=== PATIENT | male | born 1950 | race Caucasian/White ===

== ENCOUNTER 2017-02-16 17:42 | Emergency (ER) | payer OTHER, MEDICAID ==
--- NOTE | 2017-02-16 18:21 | EDPHY ---
H & P Time Seen by Provider: 02/16/17 18:08 HPI/ROS: CHIEF COMPLAINT: Left forearm ecchymosis HISTORY OF PRESENT ILLNESS: 66-year-old male history of cardiac stenting on daily Plavix and aspirin arrives via private vehicle after he noticed ecchymosis to his left forearm this afternoon. No known trauma. He spent the morning playing with his granddaughter.. He went to an urgent care and they referred him to the ER for evaluation PRIMARY CARE PROVIDER: Dr. Amanda Beverly REVIEW OF SYSTEMS: A ten point review of systems was performed and is negative with the exception of the items mentioned in the HPI PHYSICAL EXAM (Prior to examination, patient consented to physical exam, hands were washed and my usual and customary physical exam procedures followed) 1) GENERAL: Well-developed, well-nourished, alert and oriented. Appears to be in no acute distress. 2) HEAD: Normocephalic 3) HEENT: sclera anicteric 4) LUNGS: Breathing comfortably. 5) SKIN: left volar forearm ecchymosis. Soft compartments. 6) MUSCULOSKELETAL: hand, wrist, forearm no underlying osseous discomfort. Full pain-free range of motion all joints of the left upper extremity. 7) NEUROLOGIC: Radial ulnar median nerve function intact. DIFFERENTIAL DIAGNOSIS: In no particular include but limited to compartment syndrome, traumatic ecchymosis, DVT Smoking Status: Never smoked Constitutional: Initial Vital Signs Temperature (C) 36.3 C 02/16/17 17:45 Heart Rate 101 H 02/16/17 17:45 Respiratory Rate 16 02/16/17 17:45 Blood Pressure 136/88 H 02/16/17 17:45 O2 Sat (%) 93 02/16/17 17:45 O2 Delivery Mode Room Air Allergies/Adverse Reactions: bacitracin Allergy (Verified 02/04/16 14:50) Home Medications: Medication Instructions Recorded Allopurinol [Allopurinol 300 MG 300 mg PO DAILY@02/15/12 (RX)] Aspirin [Aspirin 325 mg (*)] 325 mg PO DAILY@02/15/12 Multivitamins [Multivitamin (*)] 1 each PO DAILY 02/15/12 Amantadine HCl [Amantadine] 100 mg PO BID@06,09/29/13 Atorvastatin Calcium [Lipitor 40 40 mg PO DAILY@09/29/13 mg (*)] Carbidopa/Levodopa 25/100Mg 2 tab PO QID@,,,09/29/13 [Sinemet 25/100 MG (*)] Clopidogrel Bisulfate [Plavix (*)] 75 mg PO DAILY06 09/29/13 Fenofibrate [Tricor 145 mg (*)] 145 mg PO DAILY@09/29/13 Pregabalin [Lyrica 50mg (*)] 50 mg PO DAILY@09/29/13 Tamsulosin HCl [Flomax 0.4 MG (*)] 0.4 mg PO DAILY06 09/29/13 Entacapone [Comtan] 200 mg PO TID@,,02/04/16 Herbals/Supplements -Info Only 1 ea PO DAILY 02/04/16 Nitroglycerin [Nitrostat 0.4 mg 0.4 mg SL Q5M PRN 02/04/16 (*)] glipiZIDE [Glipizide] 5 mg PO BID@,02/04/16 metFORMIN HCL [Metformin HCl ER] 500 mg PO BID@,02/04/16 prednisoLONE ACET 1% [Pred Forte 1 drops EACHEYE BID 02/04/16 1% (*)] Carvedilol [Coreg (*)] 12.5 mg PO BIDMEAL 02/10/16 Sacubitril/Valsartan 24/26Mg 1 ea PO BID@,02/10/16 [Entresto 24 mg/26 mg (RX)] MDM/Departure - [facility] Imaging Results: Imaging Impressions Extremity Venous Study 02/16/17 18:18 Impression: No deep venous thrombosis left upper extremity. Results called to Crow Lafleur PA-C, at 7:15 PM. Imaging: Discussed imaging studies w/ optical worker Radiologist ED Course/Re-evaluation: Patient was re-evaluated with serial exams most recent 7:30 p.m.. Discussed his negative DVT study.he has soft compartments is neurovascular intact with brisk capillary refill and strong pulses. Doubt compartment syndrome. Doubt DVT. Doubt cellulitis. Suspect that the patient's ecchymosis is likely secondary to minor trauma earlier today in the presence of Plavix and aspirin use. I recommended elevation and usual customary orthopedic precautions instructions provided. Questions and concerns addressed by myself.Care and management in consultation with secondary supervising physician Dr Her . - Depart Disposition: Home, Routine, Self-Care Clinical Impression: Traumatic ecchymosis of left forearm Qualifiers: Encounter type: initial encounter Qualified Code(s): S50.12XA - Contusion of left forearm, initial encounter Instructions: Contusion in Adults (ED) Additional Instructions: Return to the ER immediately if you experience discoloration, have worsening pain, numbness, tingling, or any other symptoms that concern you. If you received x-rays in the emergency department today, be advised, that ligamentous , tendon, muscular, and other non-bony injury cannot be fully ruled out. Try to keep your affected extremity elevated above the level of your chest, and keep cold packs on the affected area, for the next 48 hours. Referrals: Amanda Beverly MD [Primary Care Provider] - 1-2 days without fail
[2017-02-16 19:55] VITALS: BP 110/72; PULSE 97; RESP 20; TEMP 97.9; O2SAT 91
== END 2017-02-16 19:55 | disposition home or self-care (01) ==
DX: S50.12XA Contusion of left forearm, initial encounter (principal); Z79.82 Long term (current) use of aspirin; Z95.5 Presence of coronary angioplasty implant and graft; X58.XXXA Exposure to other specified factors, initial encounter

== ENCOUNTER → 2017-08-22 | Outpatient (CLI) | payer OTHER, MEDICAID | LOC: CIMAGING 11:51 | PROVIDERS: ATTEND Family Medicine | DX: M19.011 Primary osteoarthritis, right shoulder (principal); Z95.0 Presence of cardiac pacemaker | CPT/HCPCS: 73030-PO ==

== ENCOUNTER → 2017-09-06 | Outpatient (CLI) | payer OTHER, MEDICAID | LOC: FIMAGING 08:14 | PROVIDERS: ATTEND Orthopaedic Surgery | DX: S46.011A Strain of muscle(s) and tendon(s) of the rotator cuff of right shoulder, initial encounter (principal); M75.91 Shoulder lesion, unspecified, right shoulder ==

== ENCOUNTER → 2018-02-14 | Outpatient (CLI) | payer OTHER, MEDICAID | LOC: FIMAGING 08:16 | DX: M51.26 Other intervertebral disc displacement, lumbar region (principal); M51.27 Other intervertebral disc displacement, lumbosacral region; M48.061 Spinal stenosis, lumbar region without neurogenic claudication; M48.07 Spinal stenosis, lumbosacral region ==

== ENCOUNTER 2018-10-26 13:43 | Inpatient (IN) | payer OTHER ==
--- NOTE | 2018-10-26 14:11 | CPEKG ---
Test Reason : OPEN Blood Pressure : / mmHG Vent. Rate : 083 BPM Atrial Rate : 041 BPM P-R Int : 166 ms QRS Dur : 124 ms QT Int : 373 ms P-R-T Axes : 025 076 -54 degrees QTc Int : 439 ms Sinus rhythm Ventricular bigeminy Nonspecific intraventricular conduction delay Anteroseptal infarct, old Confirmed by Isaías Huston ([id number]) on 10/26/2018 2:10:33 PM Referred By: Isaías Huston Confirmed By:Isaías Huston
--- NOTE | 2018-10-26 14:13 | EDPHY ---
H & P Time Seen by Provider: 10/26/18 13:55 HPI/ROS: Chief complaint. Chest tightness HPI. 68-year-old male presents with central chest tightness that began this morning. No radiation. He also has dyspnea on exertion for the last several days. No fever or cough. He has noticed increased leg swelling over the last week. Denies abdominal pain or vomiting or diarrhea. Symptoms are worse with exertion. ROS 10 systems were reviewed and negative with the exception of the elements mentioned in the history of present illness Past Medical/Surgical History: Past medical history coronary artery disease with stents with ICD, Parkinson's disease, renal failure Social History: , nonsmoker, no alcohol Smoking Status: Never smoked Physical Exam: General Appearance: Alert well-developed male moderate distress. Vital signs are stable Eyes: Pupils equal and round no pallor or injection. ENT, Mouth: Mucous membranes are moist. Respiratory: No retractions. Distant breath sounds. No wheezes rales or rhonchi are audible Cardiovascular: Regular rate and rhythm. Gastrointestinal: Abdomen is soft and nontender, no masses, bowel sounds normal. Neurological: Awake and alert, sensory and motor exams grossly normal. Skin: Warm and dry, no rashes. Musculoskeletal: Neck is supple nontender. Extremities 2+ edema to lower legs Psychiatric: Patient is oriented X 3, there is no agitation. Constitutional: Initial Vital Signs Temperature (C) 36.7 C 10/26/18 13:45 Heart Rate 66 10/26/18 13:45 Respiratory Rate 16 10/26/18 13:45 Blood Pressure 142/65 H 10/26/18 13:45 O2 Sat (%) 96 10/26/18 13:45 Allergies/Adverse Reactions: bacitracin Allergy (Verified 02/04/16 14:50) Home Medications: Medication Instructions Recorded Allopurinol [Allopurinol 300 MG 300 mg PO DAILY@02/15/12 (RX)] Multivitamins [Multivitamin (*)] 1 each PO DAILY@12 02/15/12 Amantadine HCl [Amantadine] 100 mg PO BID@,09/29/13 Atorvastatin Calcium [Lipitor 40 40 mg PO DAILY@2200 09/29/13 mg (*)] Carbidopa/Levodopa 25/100Mg 2 tab PO QID@,,,09/29/13 [Sinemet 25/100 MG (*)] Clopidogrel Bisulfate [Plavix (*)] 75 mg PO DAILY06 09/29/13 Fenofibrate [Tricor 145 mg (*)] 145 mg PO DAILY@09/29/13 Pregabalin [Lyrica 50mg (*)] 50 mg PO DAILY@1700 09/29/13 Tamsulosin HCl [Flomax 0.4 MG (*)] 0.4 mg PO DAILY06 09/29/13 Entacapone [Comtan] 200 mg PO QID@,,,02/04/16 Nitroglycerin [Nitrostat 0.4 mg 0.4 mg SL Q5M PRN 02/04/16 (*)] glipiZIDE [Glipizide] 5 mg PO BID@,02/04/16 Aspirin EC [Aspirin EC 81 mg (*)] 81 mg PO DAILY@17010/26/18 Carvedilol [Coreg (*)] 25 mg PO BID@,10/26/18 Folic Acid 0.8 mg PO DAILY@12 10/26/18 [place]-3 Fatty Acids [Fish Oil 1000 1,000 mg PO DAILY@2200 10/26/18 mg (*)] Ranitidine HCl [Zantac] 150 mg PO BID@,10/26/18 Sacubitril/Valsartan 49/51Mg 1 ea PO BID@,10/26/18 [Entresto 49 mg/51 mg (RX)] metFORMIN SR [Glucophage XR 500 mg 1,000 mg PO BID@,10/26/18 (*)] Medical Decision Making - Diagnostics EKG Interpretation: EKG interpreted by me shows normal sinus rhythm normal interval and axis. Nonspecific interventricular conduction delay. No significant ST elevation or depression. Ventricular bigeminy. Rate is 83 Other than bigeminy no significant change from previous EKG August 2015 Imaging Results: Imaging Impressions Chest X-Ray 10/26/18 14:00 Impression: Mild pulmonary venous hypertension. Chest x-ray interpreted by me shows mild CHF Procedures: IV normal saline, monitor ED Course/Re-evaluation: The patient, his , and I discussed imaging EKG lab work. We discussed treatment plan including recommendation for admission for his chest tightness and evidence of congestive heart failure. He expresses understanding and agreement A I consulted discussed the case with Dr. Higgins, hospitalist, who agrees to the admission Differential Diagnosis: I considered pneumonia, congestive heart failure, acute coronary syndrome - Data Points Laboratory Results: Laboratory Results 10/26/18 14:04 10/26/18 14:04 10/26/18 10/26/18 10/26/18 14:08 14:04 14:04 WBC RBC Hgb Hct MCV MCH MCHC RDW Plt Count MPV Neut % (Auto) Lymph % (Auto) Citrus % (Auto) Eos % (Auto) Baso % (Auto) Nucleat RBC Rel Count Absolute Neuts (auto) Absolute Lymphs (auto) Absolute Monos (auto) Absolute Eos (auto) Absolute Basos (auto) Absolute Nucleated RBC Immature Gran % Immature Gran # PT 13.7 SEC SEC (12.0-15.0) INR 1.09 (0.83-1.16) APTT 27.6 SEC SEC (23.0-38.0) Sodium 141 mEq/L mEq/L (135-145) Potassium 4.7 mEq/L mEq/L (3.5-5.2) Chloride 110 mEq/L mEq/L (97-110) Carbon Dioxide 25 mEq/l mEq/l (22-31) Anion Gap 6 mEq/L mEq/L (6-14) BUN 27 mg/dL H mg/dL (7-23) Creatinine 1.2 mg/dL mg/dL (0.7-1.3) Estimated GFR 60 Glucose 126 mg/dL H mg/dL (70-100) Calcium 9.6 mg/dL mg/dL (8.5-10.4) POC Troponin I 0.01 ng/mL ng/mL (0.00-0.08) NT-Pro-B Natriuret Pep 2000 pg/mL H pg/mL (0-125) 10/26/18 14:04 WBC 8.29 10^3/uL 10^3/uL (3.80-9.50) RBC 4.47 10^6/uL 10^6/uL (4.40-6.38) Hgb 14.6 g/dL g/dL (13.7-17.5) Hct 45.5 % % (40.0-51.0) MCV 101.8 fL H fL (81.5-99.8) MCH 32.7 pg pg (27.9-34.1) MCHC 32.1 g/dL L g/dL (32.4-36.7) RDW 14.1 % % (11.5-15.2) Plt Count 260 10^3/uL 10^3/uL (150-400) MPV 10.4 fL fL (8.7-11.7) Neut % (Auto) 52.7 % % (39.3-74.2) Lymph % (Auto) 36.2 % % (15.0-45.0) Citrus % (Auto) 7.7 % % (4.5-13.0) Eos % (Auto) 2.3 % % (0.6-7.6) Baso % (Auto) 0.7 % % (0.3-1.7) Nucleat RBC Rel Count 0.0 % % (0.0-0.2) Absolute Neuts (auto) 4.37 10^3/uL 10^3/uL (1.70-6.50) Absolute Lymphs (auto) 3.00 10^3/uL 10^3/uL (1.00-3.00) Absolute Monos (auto) 0.64 10^3/uL 10^3/uL (0.30-0.80) Absolute Eos (auto) 0.19 10^3/uL 10^3/uL (0.03-0.40) Absolute Basos (auto) 0.06 10^3/uL 10^3/uL (0.02-0.10) Absolute Nucleated RBC 0.00 10^3/uL 10^3/uL (0-0.01) Immature Gran % 0.4 % % (0.0-1.1) Immature Gran # 0.03 10^3/uL 10^3/uL (0.00-0.10) PT INR APTT Sodium Potassium Chloride Carbon Dioxide Anion Gap BUN Creatinine Estimated GFR Glucose Calcium POC Troponin I NT-Pro-B Natriuret Pep Medications Given: Allopurinol (Allopurinol) 300 mg PO DAILY@17 [facility] Stop: 04/24/19 16:59 Last Admin: 10/26/18 17:32 Dose: 300 mg Amantadine HCl (Symmetrel) 100 mg PO BID@ [facility] Stop: 04/24/19 16:59 Last Admin: 10/26/18 17:31 Dose: 100 mg Aspirin Buffered (Aspirin Ec) 81 mg PO DAILY@1700 [facility] Stop: 04/24/19 16:59 Last Admin: 10/26/18 17:32 Dose: 81 mg Carbidopa/Levodopa (Sinemet) 2 tab PO QID@,,, [facility] Stop: 04/24/19 16:59 Last Admin: 10/26/18 17:32 Dose: 2 tab Entacapone (Comtan) 200 mg PO QID@,,, [facility] Stop: 04/24/19 16:59 Last Admin: 10/26/18 17:31 Dose: 200 mg Famotidine (Pepcid) 150 mg PO BID@ [facility] Stop: 04/24/19 16:59 Last Admin: 10/26/18 17:29 Dose: 150 mg Insulin Human Lispro (Humalog Lispro) 0 unit SC TIDMEAL [facility] PRN Reason: Protocol Stop: 04/24/19 17:59 Last Admin: 10/26/18 19:45 Dose: Not Given Pregabalin (Lyrica) 50 mg PO DAILY@1700 [facility] Stop: 04/24/19 16:59 Last Admin: 10/26/18 17:32 Dose: 50 mg Sacubitril/Valsartan (Entresto 49 Mg/51 Mg) 1 ea PO BID@ [facility] Stop: 04/24/19 16:59 Last Admin: 10/26/18 17:31 Dose: 1 ea Discontinued Medications Furosemide (Lasix Injection) 20 mg IVP ONCE ONE Stop: 10/26/18 16:10 Last Admin: 10/26/18 17:29 Dose: 20 mg Point of Care Test Results: Chemistry 10/26/18 14:08 POC Troponin I 0.01 ng/mL ng/mL (0.00-0.08) Departure - Departure Disposition: [facility] Inpatient Acute Clinical Impression: Chest pain Qualifiers: Chest pain type: unspecified Qualified Code(s): R07.9 - Chest pain, unspecified Congestive heart failure Qualifiers: Heart failure type: unspecified Heart failure chronicity: acute on chronic Qualified Code(s): I50.9 - Heart failure, unspecified Condition: Fair
[2018-10-26 14:21] LABS: PLATELET COUNT 260 10^3/uL (150-400)
[2018-10-26 14:40] LABS: INR 1.09 (0.83-1.16); PROTIME(PATIENT) 13.7 SEC (12.0-15.0)
[2018-10-26] MEDS ORDERED: ONDANSETRON DISINTEGRATING 4 MG TAB PO PRN (16:01)
[2018-10-26] MEDS ORDERED: ONDANSETRON 4 MG/2 ML VIAL IVP PRN (16:01)
[2018-10-26] MEDS ORDERED: ACETAMINOPHEN 325 MG TAB PO PRN (16:01)
[2018-10-26] MEDS ORDERED: D50W 25 GM/50 ML SYR IVP PRN (16:06)
[2018-10-26] MEDS ORDERED: FUROSEMIDE 20 MG/2 ML VIAL IVP ONE (16:09)
[2018-10-26] MEDS ORDERED: NITROGLYCERIN 0.4 MG BTL SL PRN (16:21)
--- NOTE | 2018-10-26 16:35 | PDGENHP ---
<Anastasia Mauro - Last Filed: 10/26/18 17:04> History and Physical - Chief Complaint Dyspnea on exertion - History of Present Illness 68 y/o male w/ hx of CAD s/p 2 stent placements, AICD, diabetes type II, congestive heart failure Stage II, HLD, GERD, and Parkinson's presents w/ dyspnea upon exertion, onset today. Associated central chest tightness w/ severity of 3/10. Does not radiate. He also noticed bilateral leg swelling within the last 2-3 weeks. Denies nausea, fevers, chills, diarrhea. CXR reveals cardiac silhouette mildly enlarged w/ mild pulmonary hypertension, EKG SR w/ ventricular bigeminy. He is being admitted for further work-up, treatment, and monitoring. History Information - Allergies/Home Medication List Allergies/Adverse Reactions: bacitracin Allergy (Verified 02/04/16 14:50) Home Medications: Allopurinol [Allopurinol 300 MG (RX)] 300 mg PO DAILY@02/15/12 [Last Taken ] Multivitamins [Multivitamin (*)] 1 each PO DAILY@02/15/12 [Last Taken ] Amantadine HCl [Amantadine] 100 mg PO BID@,09/29/13 [Last Taken 10/26/18 06 :00] Atorvastatin Calcium [Lipitor 40 mg (*)] 40 mg PO DAILY@219909/29/13 [Last Taken 10/25/18] Carbidopa/Levodopa 25/100Mg [Sinemet 25/100 MG (*)] 2 tab PO QID@,,, [Last Taken 10/26/18 12:00] Clopidogrel Bisulfate [Plavix (*)] 75 mg PO DAILY09/29/13 [Last Taken ] Fenofibrate [Tricor 145 mg (*)] 145 mg PO DAILY@09/29/13 [Last Taken 10/25/18 ] Pregabalin [Lyrica 50mg (*)] 50 mg PO DAILY@17009/29/13 [Last Taken 10/25/18] Tamsulosin HCl [Flomax 0.4 MG (*)] 0.4 mg PO DAILY06 09/29/13 [Last Taken ] Entacapone [Comtan] 200 mg PO QID@,,,02/04/16 [Last Taken 10/26/18 12: 00] Nitroglycerin [Nitrostat 0.4 mg (*)] 0.4 mg SL Q5M PRN 02/04/16 [Last Taken Unknown] glipiZIDE [Glipizide] 5 mg PO BID@,02/04/16 [Last Taken 10/26/18 06:00] Aspirin EC [Aspirin EC 81 mg (*)] 81 mg PO DAILY@1700 10/26/18 [Last Taken 10/25] Carvedilol [Coreg (*)] 25 mg PO BID@,10/26/18 [Last Taken 10/26/18 06:00] Folic Acid 0.8 mg PO DAILY@10/26/18 [Last Taken 10/26/18] [place]-3 Fatty Acids [Fish Oil 1000 mg (*)] 1,000 mg PO DAILY@219910/26/18 [ Last Taken 10/25/18] Ranitidine HCl [Zantac] 150 mg PO BID@,10/26/18 [Last Taken 10/26/18 06:00] Sacubitril/Valsartan 49/51Mg [Entresto 49 mg/51 mg (RX)] 1 ea PO BID@,10/26 [Last Taken 10/26/18 06:00] metFORMIN SR [Glucophage XR 500 mg (*)] 1,000 mg PO BID@,10/26/18 [Last Taken 10/26/18 06:00] I have personally reviewed and updated: family history, medical history, social history, surgical history - Past Medical History coronary artery disease, CHF, diabetes type 2, hypertension, hyperlipidemia, myocardial infarction ([place] in 1998) Additional medical history: AICD, Parkinson's Disease, Obesity, GERD, Dysphonia - Surgical History Reports: appendectomy Additional surgical history: Stents placed in 1998, 1999. AICD (1999) - Family History Positive for: diabetes type II, lung disease - Social History Smoking Status: Former smoker Alcohol Use: Rarely Drug Use: None Additional social history: . Review of Systems Review of Systems: ROS: 10pt was reviewed & negative except for what was stated in HPI & below Physical Exam Physical Exam: Lab data and imaging were reviewed. Case discussed w/admitting physician, Dr. Jayson Higgins. Trop: 0.01 BNP: 1999 EKG: See HPI CXR: See HPI Temp Pulse Resp BP Pulse Ox 36.7 C 42 L 16 130/72 H 94 10/26/18 13:45 10/26/18 15:52 10/26/18 15:52 10/26/18 15:52 10/26/18 15:52 Constitutional: obese, uncomfortable Eyes: PERRL, anicteric sclera, EOMI Ears, Nose, Mouth, Throat: moist mucous membranes, hearing normal, ears appear normal, no oral mucosal ulcers Cardiovascular: regular rate and rhythym, no murmur, rub, or gallop, edema (Non- pitting edema BLE) Peripheral Pulses: 1+: dorsalis-pedis (R) (Radial 1+), dorsalis-pedis (L) ( Radial 1+) Respiratory: reduced air movement Gastrointestinal: normoactive bowel sounds, soft, non-tender abdomen, no palpable masses Genitourinary: no bladder fullness, no bladder tenderness Skin: warm, normal color, no rashes or abrasions, no fluctuance, no induration, No mottled Musculoskeletal: full muscle strength, no muscle tenderness, normal joint ROM, no joint effusions Neurologic: AAOx3, sensation intact bilaterally, CN II-XII Intact Psychiatric: interacting appropriately, not anxious, not encephalopathic, thought process linear Lymph, Heme, Immunologic: no cervical LAD, no supraclavicular LAD Lab Data & Imaging Review 10/26/18 14:04 10/26/18 14:04 WBC 8.29 10^3/uL (3.80-9.50) 10/26/18 14:04 RBC 4.47 10^6/uL (4.40-6.38) 10/26/18 14:04 Hgb 14.6 g/dL (13.7-17.5) 10/26/18 14:04 Hct 45.5 % (40.0-51.0) 10/26/18 14:04 MCV 101.8 fL (81.5-99.8) H 10/26/18 14:04 MCH 32.7 pg (27.9-34.1) 10/26/18 14:04 MCHC 32.1 g/dL (32.4-36.7) L 10/26/18 14:04 RDW 14.1 % (11.5-15.2) 10/26/18 14:04 Plt Count 260 10^3/uL (150-400) 10/26/18 14:04 MPV 10.4 fL (8.7-11.7) 10/26/18 14:04 Neut % (Auto) 52.7 % (39.3-74.2) 10/26/18 14:04 Lymph % (Auto) 36.2 % (15.0-45.0) 10/26/18 14:04 [place] % (Auto) 7.7 % (4.5-13.0) 10/26/18 14:04 Eos % (Auto) 2.3 % (0.6-7.6) 10/26/18 14:04 Baso % (Auto) 0.7 % (0.3-1.7) 10/26/18 14:04 Nucleat RBC Rel Count 0.0 % (0.0-0.2) 10/26/18 14:04 Absolute Neuts (auto) 4.37 10^3/uL (1.70-6.50) 10/26/18 14:04 Absolute Lymphs (auto) 3.00 10^3/uL (1.00-3.00) 10/26/18 14:04 Absolute Monos (auto) 0.64 10^3/uL (0.30-0.80) 10/26/18 14:04 Absolute Eos (auto) 0.19 10^3/uL (0.03-0.40) 10/26/18 14:04 Absolute Basos (auto) 0.06 10^3/uL (0.02-0.10) 10/26/18 14:04 Absolute Nucleated RBC 0.00 10^3/uL (0-0.01) 10/26/18 14:04 Immature Gran % 0.4 % (0.0-1.1) 10/26/18 14:04 Immature Gran # 0.03 10^3/uL (0.00-0.10) 10/26/18 14:04 PT 13.7 SEC (12.0-15.0) 10/26/18 14:04 INR 1.09 (0.83-1.16) 10/26/18 14:04 APTT 27.6 SEC (23.0-38.0) 10/26/18 14:04 Sodium 141 mEq/L (135-145) 10/26/18 14:04 Potassium 4.7 mEq/L (3.5-5.2) 10/26/18 14:04 Chloride 110 mEq/L (97-110) 10/26/18 14:04 Carbon Dioxide 25 mEq/l (22-31) 10/26/18 14:04 Anion Gap 6 mEq/L (6-14) 10/26/18 14:04 BUN 27 mg/dL (7-23) H 10/26/18 14:04 Creatinine 1.2 mg/dL (0.7-1.3) 10/26/18 14:04 Estimated GFR 60 10/26/18 14:04 Glucose 126 mg/dL (70-100) H 10/26/18 14:04 Calcium 9.6 mg/dL (8.5-10.4) 10/26/18 14:04 POC Troponin I 0.01 ng/mL (0.00-0.08) 10/26/18 14:08 NT-Pro-B Natriuret Pep 2000 pg/mL (0-125) H 10/26/18 14:04 Assessment & Plan Plan: 68 y/o male w/ extensive cardiac hx including AICD, CAD s/p 2 stents, hx of IL, HTN, HLD, CHF and DM presenting w/ acute VU and 2-3 weeks worth of BLE non- pitting edema. He reports gaining 7 lbs within one month. [employer] Dies is Dr. Mckeon. Last echo performed in July 2018 w/ results: LVEF 45%, LVEDD 5.6cm, mild TR w/ estimated normal PA pressures. Lexiscan cardiolite around the time same showed LVEF 40% w/ no ischemia. #Acute on chronic CHF exacerbation #Diabetes II #CAD s/p 2 stents #Biotronik AICD #Obesity #HTN #GERD #Parkinson's #HLD Plan: -Cardiology consult. Left message for Dr. Wheeler to consult. -Cont tele monitoring -Cycle trop one more time; first one negative -IV 20 mg Lasix one time today; will reassess in AM -Monitor I&Os BID -Check weight QD -ISS in house, glucose checks TID before meals. Holding home metformin and glipizide. -PT/OT to evaluate and treat -Continuing all home medications for above conditions except for the following: metformin, glipizide, omega 3, coreg (re-evaluate in AM for Coreg. HR fluctuating in 80s and then to 40s. Continue to monitor) Diet: Cardiac VTE ppx: SCDs, Plavix, ASA Code: Full Dispo: Admit to inpatient <Jayson Higgins - Last Filed: 10/26/18 19:12> History and Physical - History of Present Illness Review of Systems Review of Systems: Physical Exam Physical Exam: Temp Pulse Resp BP Pulse Ox 36.6 C 65 12 120/80 94 10/26/18 17:59 10/26/18 17:59 10/26/18 17:59 10/26/18 17:59 10/26/18 17:59 Lab Data & Imaging Review 10/26/18 14:04 10/26/18 14:04 WBC 8.29 10^3/uL (3.80-9.50) 10/26/18 14:04 RBC 4.47 10^6/uL (4.40-6.38) 10/26/18 14:04 Hgb 14.6 g/dL (13.7-17.5) 10/26/18 14:04 Hct 45.5 % (40.0-51.0) 10/26/18 14:04 MCV 101.8 fL (81.5-99.8) H 10/26/18 14:04 MCH 32.7 pg (27.9-34.1) 10/26/18 14:04 MCHC 32.1 g/dL (32.4-36.7) L 10/26/18 14:04 RDW 14.1 % (11.5-15.2) 10/26/18 14:04 Plt Count 260 10^3/uL (150-400) 10/26/18 14:04 MPV 10.4 fL (8.7-11.7) 10/26/18 14:04 Neut % (Auto) 52.7 % (39.3-74.2) 10/26/18 14:04 Lymph % (Auto) 36.2 % (15.0-45.0) 10/26/18 14:04 [place] % (Auto) 7.7 % (4.5-13.0) 10/26/18 14:04 Eos % (Auto) 2.3 % (0.6-7.6) 10/26/18 14:04 Baso % (Auto) 0.7 % (0.3-1.7) 10/26/18 14:04 Nucleat RBC Rel Count 0.0 % (0.0-0.2) 10/26/18 14:04 Absolute Neuts (auto) 4.37 10^3/uL (1.70-6.50) 10/26/18 14:04 Absolute Lymphs (auto) 3.00 10^3/uL (1.00-3.00) 10/26/18 14:04 Absolute Monos (auto) 0.64 10^3/uL (0.30-0.80) 10/26/18 14:04 Absolute Eos (auto) 0.19 10^3/uL (0.03-0.40) 10/26/18 14:04 Absolute Basos (auto) 0.06 10^3/uL (0.02-0.10) 10/26/18 14:04 Absolute Nucleated RBC 0.00 10^3/uL (0-0.01) 10/26/18 14:04 Immature Gran % 0.4 % (0.0-1.1) 10/26/18 14:04 Immature Gran # 0.03 10^3/uL (0.00-0.10) 10/26/18 14:04 PT 13.7 SEC (12.0-15.0) 10/26/18 14:04 INR 1.09 (0.83-1.16) 10/26/18 14:04 APTT 27.6 SEC (23.0-38.0) 10/26/18 14:04 Sodium 141 mEq/L (135-145) 10/26/18 14:04 Potassium 4.7 mEq/L (3.5-5.2) 10/26/18 14:04 Chloride 110 mEq/L (97-110) 10/26/18 14:04 Carbon Dioxide 25 mEq/l (22-31) 10/26/18 14:04 Anion Gap 6 mEq/L (6-14) 10/26/18 14:04 BUN 27 mg/dL (7-23) H 10/26/18 14:04 Creatinine 1.2 mg/dL (0.7-1.3) 10/26/18 14:04 Estimated GFR 60 10/26/18 14:04 Glucose 126 mg/dL (70-100) H 10/26/18 14:04 POC Glucose 97 mg/dL (70-100) 10/26/18 17:22 Calcium 9.6 mg/dL (8.5-10.4) 10/26/18 14:04 POC Troponin I 0.01 ng/mL (0.00-0.08) 10/26/18 14:08 NT-Pro-B Natriuret Pep 2000 pg/mL (0-125) H 10/26/18 14:04 Assessment & Plan Plan: Patient seen and evaluated independently and care plan reviewed with PIO Mauro, agree with her assessment and plan as outlined above. Please see separate documentation for further details.
[2018-10-26] MEDS: FAMOTIDINE 20 MG TAB PO SCH (17:29)
[2018-10-26] MEDS: ENTACAPONE 200 MG TAB PO SCH ×2 (17:31→21:16)
[2018-10-26] MEDS: AMANTADINE HCL 100 MG CAP PO SCH (17:31)
[2018-10-26] MEDS: SACUBITRIL/VALSARTAN 49/51MG 1 EA TAB PO SCH (17:31)
[2018-10-26] MEDS: ALLOPURINOL 300 MG TAB PO SCH (17:32)
[2018-10-26] MEDS: PREGABALIN 50 MG CAP PO SCH (17:32)
[2018-10-26] MEDS: ASPIRIN EC 81 MG TAB PO SCH (17:32)
[2018-10-26] MEDS: CARBIDOPA/LEVODOPA 25 MG/100 MG TAB PO SCH ×2 (17:32→21:15)
--- NOTE | 2018-10-26 19:18 | HOSPPROG ---
Hospitalist Progress Note Assessment/Plan: 68 yo M with hx of CAD, CHF with an EF as low as 10%, DM2, CAD, presenting with c/o VU, chest pressure and increased swelling in his legs # acute on chronic CHF, combined systolic and diastolic: patient with most recent EF of 40%, has been as low as 10%. Pro-BNP elevated to 2000 from 600 last week, cxr without significant pulmonary edema but does have edema of legs bilaterally. Will start IV lasix in am, had oral already this afternoon. Monitoring on tele, serial trops and ecg, cardiology consulted. # chest pain: patient notes on and off chest pain/pressure recently, as above, initial trop negative, ecg not clearly ischemic # DM2: holding metformin in case he requires cath, continue glipizide and SSI, most recent A1c of 7.9 # CAD: hx of prior stents, as above # HTN: BP has been slightly low, on coreg and entersto chronically, will hold coreg given intermittent bradycardia (as low as 42 in ER, asymptomatic) # HLD: continue statin # IP status, will require > 48 hours stay for eval/mgmt of above Patient new to my care. Old records reviewed and summarized as above. Care plan reviewed with ER doctor and [employer] [place], please see her documentation for further details, further hx obtained from patients present at bedside. Objective: Vital Signs Temp Pulse Resp BP Pulse Ox 36.6 C 65 12 120/80 94 10/26/18 17:59 10/26/18 17:59 10/26/18 17:59 10/26/18 17:59 10/26/18 17:59 10/25/18 10/26/18 10/27/18 05:59 05:59 05:59 Intake Total 550 Output Total 900 Balance -350 PT 13.7 SEC (12.0-15.0) 10/26/18 14:04 INR 1.09 (0.83-1.16) 10/26/18 14:04 ICD10 Worksheet Patient Problems: Problems Problem Status Onset Cellulitis of leg Active CAD - Coronary arteriosclerosis Active Electrocardiogram abnormal Active Type II diabetes mellitus - poor control Active Acute renal failure syndrome Active Hyperlipidemia Active Body mass index 30+ - obesity Active
[2018-10-26] MEDS: INSULIN LISPRO 100 UNIT/ML SC SCH (19:45)
[2018-10-26] MEDS: FENOFIBRATE 145 MG TAB PO SCH (21:15)
[2018-10-26] MEDS: ATORVASTATIN CALCIUM 40 MG TAB PO SCH (21:15)
[2018-10-27 04:33] LABS: PLATELET COUNT 262 10^3/uL (150-400)
[2018-10-27] MEDS: CLOPIDOGREL BISULFATE 75 MG TAB PO SCH (05:51)
[2018-10-27] MEDS: SACUBITRIL/VALSARTAN 49/51MG 1 EA TAB PO SCH ×2 (05:51→16:47)
[2018-10-27] MEDS: ENTACAPONE 200 MG TAB PO SCH ×4 (05:52→22:03)
[2018-10-27] MEDS: TAMSULOSIN HCL 0.4 MG CAP PO SCH (05:52)
[2018-10-27] MEDS: glipiZIDE 5 MG TAB PO SCH ×2 (05:52→16:47)
[2018-10-27] MEDS: FAMOTIDINE 20 MG TAB PO SCH ×2 (05:53→16:41)
[2018-10-27] MEDS: CARBIDOPA/LEVODOPA 25 MG/100 MG TAB PO SCH ×4 (05:53→22:03)
[2018-10-27] MEDS: AMANTADINE HCL 100 MG CAP PO SCH ×2 (05:53→16:47)
[2018-10-27] MEDS: INSULIN LISPRO 100 UNIT/ML SC SCH ×3 (08:05→18:00)
--- NOTE | 2018-10-27 09:23 | PDMN ---
Medical Necessity Medical necessity: MCG M190 heart failure-A-2 days: 68yoM with extensive cardiac hx including AICD, CAD s/p 2 stents, EF as low as 10%, hx PR, HTN, CHF , obesity and DM presents with acute VU 2-3 weeks BLE non pitting edema, 7 lb wt gain, chest pressure, - Pro BNP elevated to 2000, anticipate > 2 MN ongoing med nec care
[2018-10-27] MEDS ORDERED: FUROSEMIDE 20 MG/2 ML VIAL IVP ONE (11:27)
[2018-10-27] MEDS: FOLIC ACID 1 MG TAB PO SCH (11:56)
[2018-10-27] MEDS: MULTIVITAMINS 1 EACH TAB PO SCH (11:57)
--- NOTE | 2018-10-27 13:04 | PDCARPN ---
Cardiology Progress Note Chief Complaint: Dyspnea and lightheadedness Assessment/Plan: Assessment: Patient is a 68 y/o male with history of CAD s/p PCI to the RCA in 1999 with ischaemic CMP (EF of 40-45% in recent past) s/p ICD placement, obesity, HTN, HLP , DM, GERD, and Parkinson's Disease, who presented to [facility] with complaints of dyspnea. Symptoms have been noted over the past month, with progression noted more acutely yesterday (to the point that the patient was unable to walk down four stairs without feeling light he might pass out. The patient also complained of chest pains, which was news to his , present in the room with the patient. Outpatient follow up with cardiology (Dr. Romina Mckeon) in mid to late August 2018 to go over stress testing from Jul 2019. On this test, no ischaemia was appreciated, and LVEF was relatively unchanged (about 40%). Echocardiography in Jul 2018 was also reviewed with outpatient cardiology follow up as well, and again, no changes to systolic function were noted. Chest pains noted have been rated about 3/10 in severity, and were non radiating. Weight gain that has been noted has been over the past month. Compliance with prescribed medications has been good. Bradycardia was being noted, and given this report, Coreg was stopped last night by hospitalist team. No troponin elevation has been noted. BNP was noted to be elevated to 2000. Plan: (1) Maintain therapy on ASA and Plavix given history of CAD with PCI to the RCA (granted, this intervention was in remote past, but would maintain antiplatelet therapy as at present) (2) Statins and Tricor to continue for HLP, and [id number] annual assessment of cholesterol and LFTs given history of CAD with PCI (3) Continue Coreg, but agree with drop in dose (to half) no given the bradycardia that was appreciated in the ER (4) Entresto should continue as at present given CAD/CHF history (5) Aggressive DM therapies should continue (6) No indications for repeat stress testing given recent studies that were obtained - consideration for repeat echocardiography with an acute change in status and history of CAD with CHF Subjective: Currently, no active cardiovascular complaint, but with ambulation, the patient felt that chest pains would be noted Reviewed/Discussed With: family, hospitalist Objective: Vital Signs (8 Hrs) Temp Pulse Resp BP Pulse Ox 10/27/18 11:02 36.3 C 86 13 127/72 H 92 10/27/18 07:29 36.7 C 86 10 L 127/75 H 90 L 10/27/18 05:51 130/70 H Intake/Output (24 Hrs) 10/26/18 10/27/18 10/28/18 05:59 05:59 05:59 Intake Total 850 Output Total 3400 600 Balance -2550 -600 Intake: Oral (ml) 850 Output: Urine (ml) 3400 600 Toilet 3400 600 Other: Weight 120.2 kg Number of Voids Toilet 1 Result Diagrams: 10/27/18 04:10 10/27/18 04:10 Cardiac Labs: Cardiac Lab Results (72 Hrs) 10/26/18 19:47 Troponin I < 0.012 Telemetry: sinus rhythm with LBBB pattern - Physical Exam Constitutional: WDWN, no apparent distress, obese Eyes: PERRL, EOMI Ears, Nose, Mouth, Throat: moist mucous membranes Cardiovascular: regular rate and rhythm, no murmurs, no rubs, pulses symmetric bilat, No jugular vein distention Peripheral Pulses: 2+: dorsalis-pedis (R), dorsalis-pedis (L) Respiratory: clear to auscultate bilat, no crackles Gastrointestinal: normoactive bowel sounds Skin: no rashes, other (trace bilateral lower extremity edema) Musculoskeletal: no muscular tenderness Neurologic: AAOx3, CN II-XII grossly intact Psychiatric: cooperative, interactive, following commands ICD10 Worksheet Patient Problems: Problems Problem Status Onset Chest pain Acute Congestive heart failure Acute Acute renal failure syndrome Active Body mass index 30+ - obesity Active CAD - Coronary arteriosclerosis Active Cellulitis of leg Active Electrocardiogram abnormal Active Hyperlipidemia Active Type II diabetes mellitus - poor control Active
[2018-10-27] MEDS ORDERED: FUROSEMIDE 20 MG/2 ML VIAL IVP SCH (15:00)
--- NOTE | 2018-10-27 15:16 | ASMTCMCOM ---
CM Note CM Note Notes: 10/27/2018 Case Management Note Pt admitted for CHF, SOB and lower extremity edema. Pt has history of OH, parkinson's, and diabetes. Discussed in rounds. Cardiac rehab consult has been ordered. There are no identified d/c case management needs d/t pt age, marital status and independence with ADL's prior to admission. Case Management d/c poc: independent with follow up as directed, possibly with cardiac outpatient rehab. Csae Management to follow. Date Signed: 10/27/2018 03:15 PM Electronically Signed By:Ashely Jerome RN
[2018-10-27] MEDS: ALLOPURINOL 300 MG TAB PO SCH (16:46)
[2018-10-27] MEDS: PREGABALIN 50 MG CAP PO SCH (16:46)
[2018-10-27] MEDS: ASPIRIN EC 81 MG TAB PO SCH (16:47)
[2018-10-27] MEDS ORDERED: FAMOTIDINE 20 MG TAB PO SCH (17:00)
--- NOTE | 2018-10-27 18:07 | HOSPPROG ---
Hospitalist Progress Note Assessment/Plan: * Acute on chronic systolic CHF, EF 10% normalized to 40% -IV lasix -Entresto -s/p AICD * Bradycardia with lightheadedness -reduce coreg dose * CP -had recent stress test - negative * Parkinson's * DM II -holding metformin * CAD/stents -ASA/Plavix * Obesity BMI 32 Subjective: still with edema Objective: Vital Signs Temp Pulse Resp BP Pulse Ox 36.8 C 91 20 133/72 H 92 10/27/18 15:19 10/27/18 15:19 10/27/18 15:19 10/27/18 15:19 10/27/18 15:19 Laboratory Results 10/27/18 04:10 10/27/18 04:10 10/26/18 10/27/18 10/28/18 05:59 05:59 05:59 Intake Total 850 740 Output Total 3400 1000 Balance -2550 -260 PT 13.7 SEC (12.0-15.0) 10/26/18 14:04 INR 1.09 (0.83-1.16) 10/26/18 14:04 d/w / veronika regarding plan, continue diuresis CXR - CHF - Physical Exam Constitutional: no apparent distress, appears nourished, not in pain Cardiovascular: regular rate and rhythym, no murmur, rub, or gallop, edema Respiratory: no respiratory distress, no rales or rhonchi, clear to auscultation Skin: no rashes or abrasions, no fluctuance, no induration Neurologic: AAOx3, sensation intact bilaterally Psychiatric: interacting appropriately, not anxious, not encephalopathic, thought process linear ICD10 Worksheet Patient Problems: Problems Problem Status Onset Cellulitis of leg Active CAD - Coronary arteriosclerosis Active Electrocardiogram abnormal Active Type II diabetes mellitus - poor control Active Acute renal failure syndrome Active Hyperlipidemia Active Body mass index 30+ - obesity Active Chest pain Acute Congestive heart failure Acute
[2018-10-27] MEDS: CARVEDILOL 6.25 MG TAB PO SCH (19:52)
[2018-10-27] MEDS: FENOFIBRATE 145 MG TAB PO SCH (22:03)
[2018-10-27] MEDS: ATORVASTATIN CALCIUM 40 MG TAB PO SCH (22:03)
[2018-10-28 04:23] LABS: PLATELET COUNT 275 10^3/uL (150-400)
[2018-10-28] MEDS: SACUBITRIL/VALSARTAN 49/51MG 1 EA TAB PO SCH ×2 (05:25→17:28)
[2018-10-28] MEDS: CLOPIDOGREL BISULFATE 75 MG TAB PO SCH (05:25)
[2018-10-28] MEDS: ENTACAPONE 200 MG TAB PO SCH ×4 (05:27→21:22)
[2018-10-28] MEDS: glipiZIDE 5 MG TAB PO SCH ×2 (05:27→17:28)
[2018-10-28] MEDS: CARBIDOPA/LEVODOPA 25 MG/100 MG TAB PO SCH ×4 (05:27→21:22)
[2018-10-28] MEDS: AMANTADINE HCL 100 MG CAP PO SCH ×2 (05:27→17:29)
[2018-10-28] MEDS: FAMOTIDINE 20 MG TAB PO SCH ×2 (05:27→17:28)
[2018-10-28] MEDS: TAMSULOSIN HCL 0.4 MG CAP PO SCH (05:27)
[2018-10-28] MEDS: INSULIN LISPRO 100 UNIT/ML SC SCH ×3 (09:01→17:27)
[2018-10-28] MEDS: CARVEDILOL 6.25 MG TAB PO SCH ×2 (09:09→18:34)
--- NOTE | 2018-10-28 10:25 | PDCARPN ---
Cardiology Progress Note Assessment/Plan: Assessment: Patient is a 68 y/o male with history of CAD s/p PCI to the RCA in 1999 with ischemic CMP w/EF of 40-45% , s/p ICD placement, obesity, HTN, HLP, DM, GERD, and Parkinson's Disease. He presented with complaints of dyspnea noted for the past month. He noted chest pain the day of admission. Recent stress test at showing no no ischemia and LVEF was stable at 40%. Echocardiography in Jul 2018 at with no changes to systolic function were noted. Chest pains rated about 3/10 in severity, and were non radiating. Weight gain that has been noted has been over the past month. Compliance with medications. Bradycardia was noted on admission and Coreg was stopped by hospitalist. No troponin elevation has been noted. BNP was noted to be elevated to 2000. Plan: (1) Maintain therapy on ASA and Plavix given history of CAD with PCI to the RCA (granted, this intervention was in remote past, but would maintain antiplatelet therapy as at present) (2) Statins and Tricor to continue for HLP, and maintain annual assessment of cholesterol and LFTs given history of CAD with PCI (3) Continue Coreg, but agree with drop in dose (to half) no given the bradycardia that was appreciated in the ER (4) Entresto should continue as at present given CAD/CHF history (5) Aggressive DM therapies should continue (6) No indications for repeat stress testing given recent studies that were obtained - consideration for repeat echocardiography with an acute change in status and history of CAD with CHF 10/28/18 14:17 Subjective: Feeling better Reviewed/Discussed With: multidisciplinary team Time Spent with Patient: greater than 25 minutes Time Spent with Patient: Greater than 25 minutes spent on this patients care, greater than 50% of time spent counseling, educating, and coordinating care regarding the above mentioned plan. Objective: Vital Signs (8 Hrs) Temp Pulse Resp BP Pulse Ox 10/28/18 07:24 36.6 C 79 18 126/70 H 93 10/28/18 05:25 125/73 H 10/28/18 04:00 36.6 C 84 18 118/65 95 Intake/Output (24 Hrs) 10/27/18 10/28/18 10/29/18 05:59 05:59 05:59 Intake Total 850 1040 Output Total 3400 2150 Balance -2550 -1110 Intake: Oral (ml) 850 1040 Output: Urine (ml) 3400 2150 Toilet 3400 2150 Other: Weight 120.2 kg 117.2 kg Intake Quantity Yes Sufficient Number of Voids Toilet 1 Result Diagrams: 10/28/18 04:05 10/28/18 04:05 Cardiac Labs: Cardiac Lab Results (72 Hrs) 10/27/18 10/26/18 14:20 19:47 Troponin I < 0.012 < 0.012 - Physical Exam Constitutional: no apparent distress Cardiovascular: regular rate and rhythm, no rubs, no gallops Respiratory: no crackles, no wheezes Skin: warm Neurologic: AAOx3 Psychiatric: cooperative, interactive ICD10 Worksheet Patient Problems: Problems Problem Status Onset Cellulitis of leg Active CAD - Coronary arteriosclerosis Active Electrocardiogram abnormal Active Type II diabetes mellitus - poor control Active Acute renal failure syndrome Active Hyperlipidemia Active Body mass index 30+ - obesity Active Chest pain Acute Congestive heart failure Acute
[2018-10-28] MEDS ORDERED: CARVEDILOL 6.25 MG TAB PO SCH (11:29)
[2018-10-28] MEDS: MULTIVITAMINS 1 EACH TAB PO SCH (12:22)
[2018-10-28] MEDS: FOLIC ACID 1 MG TAB PO SCH (12:23)
--- NOTE | 2018-10-28 16:18 | HOSPPROG ---
Hospitalist Progress Note Assessment/Plan: * Acute on chronic systolic CHF, EF 10% normalized to 40%, s/p AICD -IV lasix - creatinine rising - hold lasix -Entresto -unclear why leg edema not improving despite intravascular depletion (creat 1.5) -check BLE US -recheck ECHO -MARSHALL hose/elevation * Bradycardia with lightheadedness -coreg reduced from 25mg to 6.25mg -had pause today on 6.25, but no symptoms -will have cardiology review * CP -had recent stress test - negative * Parkinson's -Sinemet * DM II -holding metformin * CAD/stents -ASA/Plavix * Obesity BMI 32 Subjective: Legs still very swollen Objective: Vital Signs Temp Pulse Resp BP Pulse Ox 36.6 C 92 14 132/63 H 93 10/28/18 15:33 10/28/18 15:33 10/28/18 15:33 10/28/18 15:33 10/28/18 15:33 Laboratory Results 10/28/18 04:05 10/28/18 04:05 10/27/18 10/28/18 10/29/18 05:59 05:59 05:59 Intake Total 850 1040 Output Total 3400 2150 Balance -2550 -1110 PT 13.7 SEC (12.0-15.0) 10/26/18 14:04 INR 1.09 (0.83-1.16) 10/26/18 14:04 tele reviewed - possible pause - Physical Exam Constitutional: no apparent distress, appears nourished, not in pain Cardiovascular: regular rate and rhythym, no murmur, rub, or gallop, edema (2+) Respiratory: no respiratory distress, no rales or rhonchi, clear to auscultation Gastrointestinal: normoactive bowel sounds, soft, non-tender abdomen, no palpable masses Skin: no rashes or abrasions, no fluctuance, no induration Neurologic: AAOx3, sensation intact bilaterally Psychiatric: interacting appropriately, not anxious, not encephalopathic, thought process linear ICD10 Worksheet Patient Problems: Problems Problem Status Onset Cellulitis of leg Active CAD - Coronary arteriosclerosis Active Electrocardiogram abnormal Active Type II diabetes mellitus - poor control Active Acute renal failure syndrome Active Hyperlipidemia Active Body mass index 30+ - obesity Active Chest pain Acute Congestive heart failure Acute
[2018-10-28] MEDS: PREGABALIN 50 MG CAP PO SCH (17:28)
[2018-10-28] MEDS: ALLOPURINOL 300 MG TAB PO SCH (17:29)
[2018-10-28] MEDS: ASPIRIN EC 81 MG TAB PO SCH (17:29)
[2018-10-28] MEDS: FENOFIBRATE 145 MG TAB PO SCH (21:22)
[2018-10-28] MEDS: ATORVASTATIN CALCIUM 40 MG TAB PO SCH (21:22)
[2018-10-29] MEDS: SACUBITRIL/VALSARTAN 49/51MG 1 EA TAB PO SCH (05:12)
[2018-10-29] MEDS: CLOPIDOGREL BISULFATE 75 MG TAB PO SCH (05:13)
[2018-10-29] MEDS: ENTACAPONE 200 MG TAB PO SCH ×2 (05:13→12:00)
[2018-10-29] MEDS: FAMOTIDINE 20 MG TAB PO SCH (05:13)
[2018-10-29] MEDS: TAMSULOSIN HCL 0.4 MG CAP PO SCH (05:13)
[2018-10-29] MEDS: glipiZIDE 5 MG TAB PO SCH (05:13)
[2018-10-29] MEDS: AMANTADINE HCL 100 MG CAP PO SCH (05:13)
[2018-10-29] MEDS: CARBIDOPA/LEVODOPA 25 MG/100 MG TAB PO SCH ×2 (05:13→12:00)
[2018-10-29] MEDS: INSULIN LISPRO 100 UNIT/ML SC SCH ×2 (08:19→13:20)
[2018-10-29] MEDS: CARVEDILOL 6.25 MG TAB PO SCH (08:33)
--- NOTE | 2018-10-29 09:22 | SOAPPROG ---
SOAP Progress Note Assessment/Plan: Assessment: 1. Ischemic cardiomyopathy improved with Entresto continue this drug. Patient had recent EF at our office to 40% will recheck a quick look echo at this time. The remains stable no further cardiac workup is necessary. Patient appeared to be admitted with the volume overload situation. Potentially he could take p.r.n. Lasix at home. He can further discuss this with Dr Mckeon as an outpatient. I would discharge him On current meds.2. Patient has some PVCs which are asymptomatic he has an AICD and on recent pacer evaluation he had no therapy delivered. He is concerned about a heart rate of "42". I told him that he could discuss with his outpatient physicians about increasing pacer rate to 50 beats per minute if need be Plan: 1. Okay to DC home today on current medicines. Would recommend support hose. Patient should perform daily weights. Patient shouldB follow-up with in the next week or so. Patient wants to go home does not wait till tomorrow to discussB options with 10/29/18 09:22 Subjective: Patient feeling better today. Long discussion with him regarding this hospitalization. It appeared he had volume overload. He has a a AICD with a VVI pacemaker set at 40 which are on recent evaluation showed no therapy and normal pacer function. His last EF was 40%. He has diuresed nicely with current Lasix dose. Lasix is now being held. Will recheck a quick look echo to is says LV function. If it remains stable from a cardiac standpoint he can go home. My thoughts are that he can have medicine adjusted by Dr. Mckeon as an outpatient. His heart rate can not get less than 40 with his VVI pacemaker. Potentially he could use Lasix on a p.r.n. Basis when he goes home. For peripheral edema he should use support hose and this was discussed. Objective: Vital Signs Temp Pulse Resp BP Pulse Ox 37.0 C 90 17 121/81 H 92 10/29/18 07:17 10/29/18 07:17 10/29/18 07:17 10/29/18 07:17 10/29/18 07:17 Laboratory Results 10/28/18 04:05 10/29/18 04:00 10/28/18 10/29/18 10/30/18 05:59 05:59 05:59 Intake Total 1040 2360 Output Total 2150 1150 Balance -1110 1210 PT 13.7 SEC (12.0-15.0) 10/26/18 14:04 INR 1.09 (0.83-1.16) 10/26/18 14:04 Physical Exam - Physical Exam Respiratory: lungs clear Cardiac/Chest: regular rate, rhythm ICD10 Worksheet Patient Problems: Problems Problem Status Onset Cellulitis of leg Active CAD - Coronary arteriosclerosis Active Electrocardiogram abnormal Active Type II diabetes mellitus - poor control Active Acute renal failure syndrome Active Hyperlipidemia Active Body mass index 30+ - obesity Active Chest pain Acute Congestive heart failure Acute
[2018-10-29 11:15] VITALS: BP 115/81
[2018-10-29] MEDS: FOLIC ACID 1 MG TAB PO SCH (11:59)
[2018-10-29] MEDS: MULTIVITAMINS 1 EACH TAB PO SCH (12:00)
--- NOTE | 2018-10-29 13:17 | ECHO ---
[email or web address] [address] Main: [phone] Echocardiography Examination Transthoracic Name: LOUIE DE LA GARZA MR#: [id number] Study Date: 10/29/2018 Study Time: 10:35 AM Date of : 1950 Age: 68 year(s) Height: 193 cm (76 in.) Weight: 117.03 kg (258 lb.) BSA: 2.47 m2 Gender: Male Examination: Limited Echo Contrast: Image Quality: Rhythm: Pacemaker rhythm Heart Rate: 88 bpm BP: 121 mmHg/81 mmHg Indication: Congestive heart failure, acute systolic Procedure Staff Referring Physician: Accountant: Reading Physician: Andrew Melton MD Requesting Provider: Indication: Congestive heart failure, acute systolic Measurements Chambers Label Value Normal Value EF lower range (%) 35 % EF upper range (%) 40 % IVSd, 2D 1.1 cm (0.6cm - 1.1cm) IVSd, MM 1.4 cm (0.6cm - 0.9cm) LVDd, 2D 5.9 cm (4.2cm - 5.9cm) LVDd, MM 5.2 cm (4.2cm - 5.9cm) LVDs, 2D 4.8 cm (2.1cm - 4cm) LVDs, MM 4.3 cm (2cm - 3.8cm) LVEF visual 35 % LVEF, 2D 37 % (54% - 74%) LVEF, BP 41 % (55% - 70%) LVEF, MM 36 % (55% - 70%) LVEF, MOD2 44 % (55% - 70%) LVEF, MOD4 33 % (55% - 70%) LVPWd, 2D 1.1 cm (0.6cm - 1cm) LVPWd, MM 1.2 cm (0.6cm - 1cm) Conclusions Left Ventricle: Patient: LOUIE DE LA GARZA Study Date: 10/29/2018 Page 1 of 2 10:35 AM The EF is visually estimated to be 35 %. This is a limited echo to evaluate LV function. The EF is estimated 35-40% The basilar inferoseptal and inferior wall are akinetic, The basilar to mid anteroseptal ellis are hypokinetic. Compared to the previous exam of 07/17/18 the EF appears to be decreased from 45% Findings Left Ventricle: The EF is visually estimated to be 35 %. EF range is estimated at 35 % - 40 %. This is a limited echo to evaluate LV function. The EF is estimated 35-40% The basilar inferoseptal and inferior wall are akinetic, The basilar to mid anteroseptal ellis are hypokinetic. Compared to the previous exam of 07/17/18 the EF appears to be decreased from 45% Exam Details Procedure Ordered: Limited Echo (No Signature Object) Patient: LOUIE DE LA GARZA Study Date: 10/29/2018 Page 2 of 2 10:35 AM [id number]
--- NOTE | 2018-10-29 13:56 | ASMTLACE ---
SUMA Length of stay for Answers: 2 days current admission Acuity / Level of Answers: Yes Care: Did the patient have an inpatient admission? Comorbidities - select Answers: Congestive heart failure all that apply Coronary Artery Disease Diabetes (uncontrolled or controlled) Previous myocardial infarction Other Notes: AICD, HLD, GERD, Marian son s # of Emergency department Answers: 1-2 visits in the last 6 months Score: 13 Date Signed: 10/29/2018 01:56 PM Electronically Signed By:Ashely Jerome RN
--- NOTE | 2018-10-29 13:58 | ASMTDCNOTE ---
Case Management Discharge Discharge Order Complete? Answers: Yes Patient to Obtain Answers: via Family Medications Transportation Arranged Answers: Family/Friends Discharge Comments Notes: 10/29/2018 Case Management Note Pt to discharge home idependent with family and outpatient cardiac rehab. Date Signed: 10/29/2018 01:58 PM Electronically Signed By:Ashely Jerome RN
--- NOTE | 2018-10-29 14:29 | ASDISCHSUM ---
Discharge Information Plan Status:Home with No Needs Medically Cleared to Leave:10/29/2018 Discharge Date:10/29/2018 CM D/C Disposition:Home, Routine, Self-Care ADT D/C Disposition:Home, Routine, Self-Care Projected Discharge Date:10/29/2018 Transportation at D/C:Family Discharge Delay Reason: Follow-Up Date:10/29/2018 Discharge Slot: Final Diagnosis: Placement Information Patient Contact Information Contact Name:CHARO Relationship: Address:[id number] City:[place] Alternate Phone: State/Zip Code:[place] [address] Email: Financial Information Financial Class:Medicare Advantage Plans Primary Plan Desc:[facility] [employer] [facility] Primary Plan Number:[id number] Secondary Plan Desc: Secondary Plan Number: Assessment Information LACE LACE Length of stay for Answers: 2 days current admission Acuity / Level of Answers: Yes Care: Did the patient have an inpatient admission? Comorbidities - select Answers: Congestive heart failure all that apply Coronary Artery Disease Diabetes (uncontrolled or controlled) Previous myocardial infarction Other Notes: AICD, HLD, GERD, Marian son s # of Emergency department Answers: 1-2 visits in the last 6 months Score: 13 Date Signed: 10/29/2018 01:56 PM Electronically Signed By:Ashely Jerome RN [facility] CM Progress Note CM Note CM Note Notes: 10/27/2018 Case Management Note Pt admitted for CHF, SOB and lower extremity edema. Pt has history of OH, parkinson's, and diabetes. Discussed in rounds. Cardiac rehab consult has been ordered. There are no identified d/c case management needs d/t pt age, marital status and independence with ADL's prior to admission. Case Management d/c poc: independent with follow up as directed, possibly with cardiac outpatient rehab. Csae Management to follow. Date Signed: 10/27/2018 03:15 PM Electronically Signed By:Ashely Jerome RN Case Management Discharge Plan Note Case Management Discharge Discharge Order Complete? Answers: Yes Patient to Obtain Answers: via Family Medications Transportation Arranged Answers: Family/Friends Discharge Comments Notes: 10/29/2018 Case Management Note Pt to discharge home idependent with family and outpatient cardiac rehab. Date Signed: 10/29/2018 01:58 PM Electronically Signed By:Ashely Jerome RN Intervention Information Intervention Type:*IM-Signed Date of Service:10/27/2018 03:38 PM Patient Type:Inpatient Staff Member:Marcia Arrington Hours: Discipline: Severity: Comment:
--- NOTE | 2018-10-29 17:35 | GDS ---
[f rep st] DISCHARGE SUMMARY DISCHARGE DIAGNOSES: 1. Acute on chronic systolic congestive heart failure. Ejection fraction previously 10%, now normal ized to 40% status post AICD. 2. Bradycardia with lightheadedness due to Coreg. 3. Parkinson's. 4. Diabetes type 2. 5. Coronary artery disease, status post previous stents. 6. Obesity, BMI 32. HISTORY: Marcell is a 68-year-old male, who presented with chest pain and lightheadedness, as well a s new onset lower extremity edema. He has a known ischemic cardiomyopathy, ejection fraction previou sly 10%, most recently had improved to 40%. He does have a defibrillator in place. He was admitted to the hospital and diuresed with IV Lasix and did have some improvement in his lower extremity edema , but not all the way resolved. We did bump his creatinine with diuresis. I do not think we can ernesto e anything more off through the kidneys. Bilateral lower extremity ultrasounds were negative for DVT . Limited recheck echo shows EF continues to be 35% to 40%. He was recommended to start MARSHALL hose an d elevation for local control of edema. The patient had symptomatic bradycardia. Heart rate was 42 and he was very lightheaded. He is on Co reg 25 mg p.o. twice daily, this was reduced to 6.[address] Melton, his pacemaker is set with a basal rate of no lower than [address]. [address] Mckeon consider reprogramming the pacemaker to a basal rate of 50, as he does appear to get asymptomatic when he is in the 40s. For now his Coreg do se has been reduced and he will follow up with Dr. Mckeon for further med management. DISCHARGE MEDICATIONS: Please see computerized record for full detailed list. New medications: 1. Lasix 40 mg p.o. daily. 2. Coreg reduced to 6.25 mg p.o. twice daily. ADDITIONAL DISCHARGE INSTRUCTIONS: Patient will call Dr. Mckeon tomorrow to get further recommendatiblanca benedict for medical management as an outpatient. Greater than 30 minutes' time was spent arranging this discharge. Patient was seen and examined by [facility] on the day of discharge. /[id number]/MODL
== END 2018-10-29 15:31 | disposition home or self-care (01) | DRG 293 ==
LOC: F2W 16:35
PROVIDERS: ADMIT Internal Medicine; ATTEND Internal Medicine
DX: I11.0 Hypertensive heart disease with heart failure (principal); I50.23 Acute on chronic systolic (congestive) heart failure; E11.9 Type 2 diabetes mellitus without complications; I25.10 Atherosclerotic heart disease of native coronary artery without angina pectoris; E66.9 Obesity, unspecified; Z68.32 Body mass index [BMI] 32.0-32.9, adult; K21.9 Gastro-esophageal reflux disease without esophagitis; G20 Parkinson's disease; E78.5 Hyperlipidemia, unspecified; I25.5 Ischemic cardiomyopathy; I25.2 Old myocardial infarction; R00.1 Bradycardia, unspecified; Z95.810 Presence of automatic (implantable) cardiac defibrillator; Z95.5 Presence of coronary angioplasty implant and graft
CPT/HCPCS: 84484-ER; J1815; J1940

== ENCOUNTER 2018-12-04 10:27 | Observation (INO) | payer OTHER | END 2018-12-05 12:26 | disposition home or self-care (01) | LOC: FCATH 10:27 → F2W 14:58 ==

== ENCOUNTER → 2018-12-05 | Outpatient (CLI) | payer OTHER | LOC: FIMAGING 16:23 | PROVIDERS: ATTEND Internal Medicine Cardiovascular Disease | DX: Z09 Encounter for follow-up examination after completed treatment for conditions other than malignant neoplasm (principal); Z95.0 Presence of cardiac pacemaker ==

== ENCOUNTER → 2018-12-11 | Outpatient (CLI) | payer OTHER | LOC: FIMAGING 09:44 | PROVIDERS: ATTEND Internal Medicine Cardiovascular Disease | DX: Z09 Encounter for follow-up examination after completed treatment for conditions other than malignant neoplasm (principal); Z95.0 Presence of cardiac pacemaker ==